=== PATIENT | female | born 1995 | race Hispanic/Latino ===

== ENCOUNTER 2021-05-23 18:18 | Day surgery (SDC) | payer SELFPAY ==
[2021-05-23 18:45] VITALS: BMI 28.9
[2021-05-23] MEDS ORDERED: Acetaminophen 500 MG TAB PO SCH (18:58)
[2021-05-23] MEDS ORDERED: hydrALAZINE 20 MG/ML VIAL SLOW IVP PRN (18:58)
[2021-05-23] MEDS ORDERED: Lactated Ringer's 1,000 ML IV SCH (19:00)
[2021-05-23 21:14] LABS: Bilirubin Neg (Negative); Blood, Urine 25 (Negative); Clarity Clear (Clear); Glucose, Urine (Dipstick) Normal (Negative); Ketone, Urine Negative (Negative); Leukocyte 25 (Negative); Nitrite Negative (Negative); Protein, Urine (Dipstick) Negative (Neg-Trace); Urobilinogen Normal mg/dL (Less than 2)
[2021-05-23 21:16] LABS: Urine Culture Reflex No No
[2021-05-23 21:27] LABS: Bacteria/HPF None Seen HPF (None Seen); RBC/HPF 0-3 HPF (0-3); Squamous Epithelial 0-3 HPF (0-3); WBC/HPF 0-3 HPF (0-3)
[2021-05-23] MEDS ORDERED: metroNIDAZOLE 500 MG TAB PO SCH (22:00)
[2021-05-24] MEDS ORDERED: metroNIDAZOLE 500 MG TAB PO SCH (09:00)
== END 2021-05-24 00:30 | disposition home or self-care (01) ==
LOC: CSHLD/OP 18:18
PROVIDERS: ATTEND Obstetrics & Gynecology
DX: O47.03 False labor before 37 completed weeks of gestation, third trimester (principal); O23.593 Infection of other part of genital tract in pregnancy, third trimester; B96.89 Other specified bacterial agents as the cause of diseases classified elsewhere; O98.813 Other maternal infectious and parasitic diseases complicating pregnancy, third trimester; B37.49 Other urogenital candidiasis; Z3A.34 34 weeks gestation of pregnancy
CPT/HCPCS: 51701; 81001; 87086; 87480; 87510; 87660; 96360; 96361; 99284

== ENCOUNTER 2021-06-16 21:37 | Day surgery (SDC) | payer SELFPAY ==
[2021-06-16 22:07] VITALS: BMI 30.2
[2021-06-17] MEDS ORDERED: hydrALAZINE 20 MG/ML VIAL SLOW IVP PRN (00:12)
== END 2021-06-17 00:40 | disposition home or self-care (01) ==
LOC: CSHLD/OP 21:37
PROVIDERS: ATTEND Family Medicine
DX: O47.1 False labor at or after 37 completed weeks of gestation (principal); Z3A.37 37 weeks gestation of pregnancy
CPT/HCPCS: 99283

== ENCOUNTER 2021-06-21 09:39 | Inpatient (IN) | payer MEDICAID, SELFPAY ==
[2021-06-21 10:21] VITALS: BMI 31.6
[2021-06-21] MEDS: Lactated Ringer's 1,000 ML IV SCH ×2 (10:30→20:26)
[2021-06-21] MEDS ORDERED: HYDROcodone/Acetaminophen 5/325 mg Tablet PO PRN ×2 (10:31→19:53)
[2021-06-21] MEDS ORDERED: Ibuprofen 800 MG TAB PO PRN (10:31)
[2021-06-21] MEDS ORDERED: Diphenoxylate HCl/Atropine Tablet PO PRN (10:31)
[2021-06-21] MEDS ORDERED: Misoprostol 200 MCG TAB PR PRN (10:31)
[2021-06-21] MEDS ORDERED: Lidocaine 1% (PF) 30 ML VIAL SC PRN (10:31)
[2021-06-21] MEDS ORDERED: Acetaminophen 500 MG TAB PO PRN (10:31)
[2021-06-21] MEDS ORDERED: Carboprost 250 MCG/ML AMP IM PRN (10:31)
[2021-06-21] MEDS ORDERED: hydrALAZINE 20 MG/ML VIAL SLOW IVP PRN ×2 (10:31→19:53)
[2021-06-21] MEDS ORDERED: Methylergonovine 0.2 MG/ML VIAL IM PRN (10:31)
[2021-06-21] MEDS ORDERED: Ondansetron PF 4 MG/2 ML Vial IVP PRN ×2 (10:31→19:53)
[2021-06-21] MEDS ORDERED: Promethazine HCl 25 MG/ML VIAL IM PRN (10:31)
[2021-06-21] MEDS ORDERED: NS w/ Oxytocin 30 units 500 ML IV SCH ×3 (10:45→19:53)
[2021-06-21 11:03] LABS: Hemoglobin 11.4 g/dL (12.0-15.5); Mean Corpuscular HGB CONC 33.2 g/dL (32.0-36.0); Mean Corpuscular Hemoglobin 28.2 pg (27.0-33.0); Mean Corpuscular Volume 84.9 fl (81.6-98.3); Mean Platelet Volume 10.5 fl (7.4-10.4); Platelet Count 300 10x3/uL (150-450); RBC Distribution Width 13.5 % (11.5-14.5); Red Blood Cell (RBC) Count 4.04 10x6/uL (3.90-5.03); White Blood Cell (WBC) Count 8.6 10x3/uL (3.5-10.5)
[2021-06-21 11:34] LABS: Hep B Surf Ag Non-Reactive S/CO (NonReactive); Syphilis Antibody Nonreactive (Nonreactive); Syphilis Antibody Index 0.02 S/CO (<1.00 Non-Reactive)
[2021-06-21 11:54] LABS: HBSAg Index 0.15 S/CO (0-0.99)
[2021-06-21 12:44] LABS: SARS-CoV-2 NAA Rapid Test Not Detected (NotDetected)
[2021-06-21] MEDS: Butorphanol Tartrate 1 MG/ML VIAL SLOW IVP PRN ×2 (12:46→13:55)
[2021-06-21] MEDS ORDERED: Lanolin Ointment 7 GM TUBE TOP PRN (19:53)
[2021-06-21] MEDS ORDERED: Milk Of Magnesia 30 ML UDCUP PO PRN (19:53)
[2021-06-21] MEDS ORDERED: Benzocaine-Menthol 82.5 ML CAN TOP PRN (19:53)
[2021-06-21] MEDS ORDERED: Boostrix 0.5 ML (Tdap) VIAL IM ONE (19:53)
[2021-06-21] MEDS ORDERED: diphenhydrAMINE 25 MG CAP PO PRN (19:53)
[2021-06-21] MEDS ORDERED: Bisacodyl 10 MG SUPP PR PRN (19:53)
[2021-06-21] MEDS: Docusate 100 MG CAP PO SCH (21:13)
[2021-06-21] MEDS: Ibuprofen 800 MG TAB PO SCH (23:49)
[2021-06-22] MEDS: Ibuprofen 800 MG TAB PO SCH ×3 (02:27→19:48)
[2021-06-22] MEDS: Ferrous Sulfate 325 MG TAB PO SCH ×2 (08:02→17:49)
[2021-06-22] MEDS: Docusate 100 MG CAP PO SCH (08:50)
[2021-06-22] MEDS ORDERED: Prenatal Vitamin 1 TAB PO SCH (09:00)
[2021-06-22 17:36] VITALS: BP 107/59; TEMP 98.8
== END 2021-06-22 20:00 | disposition home or self-care (01) | DRG 807 ==
LOC: CSHLD 09:39 → CSHPP 20:17
PROVIDERS: ADMIT Family Medicine; ATTEND Family Medicine
PROC: 10E0XZZ Delivery of Products of Conception, External Approach (ICD-10-PCS; principal; 2021-06-21)
PROC: 10907ZC Drainage of Amniotic Fluid, Therapeutic from Products of Conception, Via Natural or Artificial Opening (ICD-10-PCS; 2021-06-21)
DX: O69.81X0 Labor and delivery complicated by cord around neck, without compression, not applicable or unspecified (principal); Z37.0 Single live birth; Z3A.38 38 weeks gestation of pregnancy; Z20.822 Contact with and (suspected) exposure to COVID-19
CPT/HCPCS: 85027; 86780; 86850; 86900; 86901; 87340; J0595; J2590; J7120; U0002

== ENCOUNTER 2021-12-02 12:00 | Emergency (ER) | payer SELFPAY ==
[2021-12-02 12:40] LABS: BHCG - Serum POSITIVE (NEGATIVE); Pregs Control Background? CLEAR/WHITE (CLR/WHITE); Pregs Control Bar Appear? YES (CONTROL BAR)
[2021-12-02 12:42] LABS: #Monocytes 0.7 10x3/uL (0.0-1.1); #Neutrophils 9.3 10x3/uL (1.5-8.4); %Basophils 0.2 % (0.0-2.0); %Eosinophils 0.1 % (0.0-6.0); %Lymphocytes 17.4 % (18.0-47.0); %Monocytes 5.3 % (0.0-10.0); %Neutrophils 76.7 % (40.0-75.0); Hemoglobin 14.4 g/dL (12.0-15.5); Mean Corpuscular Hemoglobin 29.9 pg (27.0-33.0); Mean Corpuscular Volume 85.5 fl (81.6-98.3); Mean Platelet Volume 9.7 fl (7.4-10.4); Platelet Count 379 10x3/uL (150-450); RBC Distribution Width 12.6 % (11.5-14.5); Red Blood Cell (RBC) Count 4.82 10x6/uL (3.90-5.03); White Blood Cell (WBC) Count 12.2 10x3/uL (3.5-10.5)
[2021-12-02 12:50] LABS: ALT (SGPT) 13 U/L (8-55); AST (SGOT) 14 U/L (5-34); Albumin 4.6 g/dL (3.5-5.0); Alkaline Phosphatase 69 U/L (40-110); Anion Gap 15 mmol/L (10-20); BUN (Urea Nitrogen) 9 mg/dL (7.0-18.7); Bilirubin, Total 0.7 mg/dL (0.2-1.2); Calc. Creatinine Clearance 0 mL/min (70-130); Calcium 9.5 mg/dL (7.8-10.44); Carbon Dioxide 21 mmol/L (22-29); Chloride 105 mmol/L (98-107); Estimated GFR 128; Globulin 3.6 g/dL (2.4-3.5); Glucose 88 mg/dL (70-105); Lipase 22 U/L (8-78); Potassium 3.6 mmol/L (3.5-5.1); Protein, Total 8.2 g/dL (6.0-8.3); Sodium 137 mmol/L (136-145)
[2021-12-02] MEDS ORDERED: Ondansetron PF 4 MG/2 ML Vial ONE ×2 (12:52→15:07)
[2021-12-02 14:34] LABS: Bilirubin Neg (Negative); Blood, Urine 10 (Negative); Clarity Cloudy (Clear); Glucose, Urine (Dipstick) Normal (Negative); Ketone, Urine 5 mg/dL (Negative); Leukocyte 500 (Negative); Nitrite Negative (Negative); Protein, Urine (Dipstick) 30 mg/dl (Neg-Trace); Specific Gravity, Urine 1.015 (1.002-1.036); Urobilinogen Normal mg/dL (Less than 2); pH, Urine 6.5 (5.0-9.0)
[2021-12-02 14:46] LABS: Bacteria/HPF 4+ HPF (None Seen); RBC/HPF 0-3 HPF (0-3)
[2021-12-02 14:47] LABS: Mucous/LPF 3+ LPF (<2+)
== END 2021-12-02 15:21 | disposition home or self-care (01) ==
LOC: CSHERS 12:00
DX: O23.41 Unspecified infection of urinary tract in pregnancy, first trimester (principal); O26.891 Other specified pregnancy related conditions, first trimester; R10.30 Lower abdominal pain, unspecified; O21.9 Vomiting of pregnancy, unspecified; Z3A.01 Less than 8 weeks gestation of pregnancy
CPT/HCPCS: 76856; 80053; 81003; 81015; 83690; 84702; 84703; 85025; 87086; 96361; 96374; 96376; J2405

== ENCOUNTER 2021-12-05 19:51 | Emergency (ER) | payer SELFPAY ==
[2021-12-05] MEDS ORDERED: Promethazine HCl 25 MG/ML VIAL ONE ×2 (20:41→23:31)
[2021-12-05 20:43] LABS: #Monocytes 0.8 10x3/uL (0.0-1.1); #Neutrophils 10.4 10x3/uL (1.5-8.4); %Basophils 0.2 % (0.0-2.0); %Eosinophils 0.1 % (0.0-6.0); %Lymphocytes 14.8 % (18.0-47.0); %Monocytes 6.2 % (0.0-10.0); %Neutrophils 78.2 % (40.0-75.0); Hemoglobin 14.5 g/dL (12.0-15.5); Mean Corpuscular HGB CONC 34.9 g/dL (32.0-36.0); Mean Corpuscular Hemoglobin 29.9 pg (27.0-33.0); Mean Corpuscular Volume 85.6 fl (81.6-98.3); Mean Platelet Volume 9.9 fl (7.4-10.4); Platelet Count 353 10x3/uL (150-450); RBC Distribution Width 12.4 % (11.5-14.5); Red Blood Cell (RBC) Count 4.85 10x6/uL (3.90-5.03); White Blood Cell (WBC) Count 13.3 10x3/uL (3.5-10.5)
[2021-12-05 20:45] LABS: Bilirubin Neg (Negative); Blood, Urine 10 (Negative); Clarity Clear (Clear); Glucose, Urine (Dipstick) Normal (Negative); Ketone, Urine 50 mg/dL (Negative); Leukocyte 25 (Negative); Nitrite Negative (Negative); Protein, Urine (Dipstick) 30 mg/dl (Neg-Trace); Specific Gravity, Urine 1.015 (1.002-1.036); pH, Urine 6.5 (5.0-9.0)
[2021-12-05 20:51] LABS: ALT (SGPT) 18 U/L (8-55); AST (SGOT) 15 U/L (5-34); Albumin 4.5 g/dL (3.5-5.0); Alkaline Phosphatase 63 U/L (40-110); Anion Gap 15 mmol/L (10-20); BUN (Urea Nitrogen) 8 mg/dL (7.0-18.7); Bilirubin, Total 0.6 mg/dL (0.2-1.2); Calc. Creatinine Clearance 0 mL/min (70-130); Calcium 9.5 mg/dL (7.8-10.44); Carbon Dioxide 21 mmol/L (22-29); Chloride 103 mmol/L (98-107); Estimated GFR 128; Globulin 3.4 g/dL (2.4-3.5); Glucose 81 mg/dL (70-105); Lipase 27 U/L (8-78); Potassium 3.3 mmol/L (3.5-5.1); Protein, Total 7.9 g/dL (6.0-8.3); Sodium 136 mmol/L (136-145)
[2021-12-05 21:14] LABS: Bacteria/HPF 2+ HPF (None Seen); RBC/HPF 0-3 HPF (0-3); WBC/HPF 0-3 HPF (0-3)
[2021-12-05 21:15] LABS: Mucous/LPF 3+ LPF (<2+)
== END 2021-12-06 01:40 | disposition home or self-care (01) ==
LOC: CSHERS 19:51
DX: R11.2 Nausea with vomiting, unspecified (principal); E86.0 Dehydration
CPT/HCPCS: 36416; 80053; 81003; 81015; 82010; 83605; 83690; 84702; 85025; 96361; 96365; 96366; J2550

== ENCOUNTER 2022-04-12 13:39 | Outpatient (CLI) | payer OTHER | END 2022-04-12 13:40 | disposition home or self-care (01) | LOC: CSHULT 13:39 | PROVIDERS: ATTEND Family Medicine | DX: Z34.82 Encounter for supervision of other normal pregnancy, second trimester (principal) | CPT/HCPCS: 76805 ==

== ENCOUNTER 2022-05-31 14:44 | Day surgery (SDC) | payer OTHER ==
[2022-05-31 15:38] VITALS: BMI 26.6
[2022-05-31] MEDS ORDERED: hydrALAZINE 20 MG/ML VIAL SLOW IVP PRN (16:24)
== END 2022-05-31 17:20 | disposition home or self-care (01) ==
LOC: CSHLD/OP 14:44
PROVIDERS: ATTEND Family Medicine
DX: O26.893 Other specified pregnancy related conditions, third trimester (principal); R42 Dizziness and giddiness; Z3A.32 32 weeks gestation of pregnancy
CPT/HCPCS: 99282

== ENCOUNTER 2022-06-15 17:43 | Day surgery (SDC) | payer OTHER ==
[2022-06-15 18:13] VITALS: BMI 26.6
[2022-06-15] MEDS ORDERED: hydrALAZINE 20 MG/ML VIAL SLOW IVP PRN (18:32)
[2022-06-15 19:33] LABS: Bilirubin Neg (Negative); Blood, Urine 10 (Negative); Clarity Slightly Cloudy (Clear); Glucose, Urine (Dipstick) Normal (Negative); Ketone, Urine 5 mg/dL (Negative); Leukocyte 500 (Negative); Nitrite Negative (Negative); Protein, Urine (Dipstick) 15 mg/dl (Neg-Trace); Specific Gravity, Urine 1.015 (1.005-1.030); Urobilinogen Normal mg/dL (Less than 2); pH, Urine 6.5 (5.0-9.0)
[2022-06-15 19:46] LABS: CAUTI Indications for Culture Pregnancy; RBC/HPF 0-3 HPF (0-3)
[2022-06-15 19:47] LABS: Bacteria/HPF 4+ HPF (None Seen); Urine Culture Reflex Yes Yes
== END 2022-06-15 21:15 | disposition home or self-care (01) ==
LOC: CSHLD/OP 17:43
PROVIDERS: ATTEND Family Medicine
DX: O47.03 False labor before 37 completed weeks of gestation, third trimester (principal); O23.43 Unspecified infection of urinary tract in pregnancy, third trimester; N39.0 Urinary tract infection, site not specified; O99.283 Endocrine, nutritional and metabolic diseases complicating pregnancy, third trimester; E86.0 Dehydration; Z3A.34 34 weeks gestation of pregnancy
CPT/HCPCS: 81001; 87077; 87086; 87186; 99283

== ENCOUNTER 2022-07-08 22:59 | Inpatient (IN) | payer MEDICAID, OTHER, SELFPAY ==
[2022-07-08 23:18] VITALS: BMI 27.3
[2022-07-09] MEDS ORDERED: hydrALAZINE 20 MG/ML VIAL SLOW IVP PRN ×3 (00:46→12:52)
[2022-07-09] MEDS ORDERED: Carboprost 250 MCG/ML AMP IM PRN (01:53)
[2022-07-09] MEDS ORDERED: Acetaminophen 500 MG TAB PO PRN (01:53)
[2022-07-09] MEDS ORDERED: Butorphanol Tartrate 1 MG/ML VIAL SLOW IVP PRN (01:53)
[2022-07-09] MEDS ORDERED: Promethazine HCl 25 MG/ML VIAL IM PRN ×2 (01:53→12:52)
[2022-07-09] MEDS ORDERED: Misoprostol 200 MCG TAB PR PRN (01:53)
[2022-07-09] MEDS ORDERED: Methylergonovine 0.2 MG/ML VIAL IM PRN (01:53)
[2022-07-09] MEDS ORDERED: Ibuprofen 800 MG TAB PO PRN (01:53)
[2022-07-09] MEDS ORDERED: Diphenoxylate HCl/Atropine Tablet PO PRN (01:53)
[2022-07-09] MEDS ORDERED: Lidocaine 1% (PF) 30 ML VIAL SC PRN (01:53)
[2022-07-09] MEDS ORDERED: Ondansetron PF 4 MG/2 ML Vial IVP PRN ×2 (01:53→12:52)
[2022-07-09] MEDS ORDERED: NS w/ Oxytocin 30 units 500 ML IV SCH ×2 (02:00)
[2022-07-09] MEDS: Lactated Ringer's 1,000 ML IV SCH ×2 (02:03→08:45)
[2022-07-09 02:38] LABS: Hemoglobin 10.9 g/dL (12.0-15.5); Mean Corpuscular HGB CONC 33.1 g/dL (32.0-36.0); Mean Corpuscular Hemoglobin 26.7 pg (27.0-33.0); Mean Corpuscular Volume 80.6 fl (81.6-98.3); Mean Platelet Volume 10.2 fl (7.4-10.4); Platelet Count 369 10x3/uL (150-450); Red Blood Cell (RBC) Count 4.08 10x6/uL (3.90-5.03); White Blood Cell (WBC) Count 8.5 10x3/uL (3.5-10.5)
[2022-07-09 03:06] LABS: SARS-CoV-2 NAA Rapid Test Not Detected (NotDetected)
[2022-07-09 03:10] LABS: Syphilis Antibody Nonreactive (Nonreactive); Syphilis Antibody Index 0.03 S/CO (<1.00 Non-Reactive)
[2022-07-09 03:11] LABS: HBSAg Index 0.16 S/CO (0-0.99); Hep B Surf Ag Non-Reactive S/CO (NonReactive)
[2022-07-09] MEDS ORDERED: HYDROcodone/Acetaminophen 5/325 mg Tablet PO PRN ×2 (12:26→12:52)
[2022-07-09] MEDS ORDERED: Lanolin Ointment 7 GM TUBE TOP PRN (12:52)
[2022-07-09] MEDS ORDERED: Milk Of Magnesia 30 ML UDCUP PO PRN (12:52)
[2022-07-09] MEDS ORDERED: Bisacodyl 10 MG SUPP PR PRN (12:52)
[2022-07-09] MEDS ORDERED: diphenhydrAMINE 25 MG CAP PO PRN (12:52)
[2022-07-09] MEDS ORDERED: Boostrix 0.5 ML (Tdap) VIAL (>/=7 yrs of age) IM ONE (12:52)
[2022-07-09] MEDS: Ibuprofen 800 MG TAB PO SCH ×3 (14:00→23:53)
[2022-07-09] MEDS: Ferrous Sulfate 325 MG TAB PO SCH (17:07)
[2022-07-09] MEDS: Docusate 100 MG CAP PO SCH (23:53)
[2022-07-10] MEDS: HYDROcodone/Acetaminophen 5/325 mg Tablet PO PRN ×2 (04:00→11:43)
[2022-07-10] MEDS: Ibuprofen 800 MG TAB PO SCH ×2 (05:44→13:50)
[2022-07-10] MEDS: Ferrous Sulfate 325 MG TAB PO SCH (07:45)
[2022-07-10] MEDS: Docusate 100 MG CAP PO SCH (08:45)
[2022-07-10] MEDS ORDERED: Prenatal Vitamin 1 TAB PO SCH (09:00)
[2022-07-10 12:48] VITALS: BP 113/59; TEMP 98.3
== END 2022-07-10 17:50 | disposition home or self-care (01) | DRG 807 ==
LOC: CSHLD/OP 22:59 → CSHLD 07-09 02:10 → CSHPED 07-09 13:05
PROVIDERS: ADMIT Family Medicine; ATTEND Family Medicine
PROC: 10E0XZZ Delivery of Products of Conception, External Approach (ICD-10-PCS; principal; 2022-07-09)
PROC: 10907ZC Drainage of Amniotic Fluid, Therapeutic from Products of Conception, Via Natural or Artificial Opening (ICD-10-PCS; 2022-07-09)
DX: O69.81X0 Labor and delivery complicated by cord around neck, without compression, not applicable or unspecified (principal); Z37.0 Single live birth; Z20.822 Contact with and (suspected) exposure to COVID-19; Z3A.38 38 weeks gestation of pregnancy
CPT/HCPCS: 36415; 85027; 86780; 86850; 86900; 86901; 87340; 99285; J2590; J7120; U0002

== ENCOUNTER 2022-12-03 16:14 | Emergency (ER) | payer MEDICAID, OTHER, SELFPAY ==
[2022-12-03] MEDS ORDERED: Lidocaine 2% 6 ML (Jelly) SYR TOP SCH (18:00)
[2022-12-03 18:10] LABS: Bilirubin Neg (Negative); Blood, Urine 150 (Negative); Glucose, Urine (Dipstick) Normal (Negative); Ketone, Urine Negative (Negative); Leukocyte 100 (Negative); Nitrite Positive (Negative); Protein, Urine (Dipstick) Negative (Neg-Trace); Urobilinogen Normal mg/dL (Less than 2)
[2022-12-03 18:11] LABS: Clarity Slightly Cloudy (Clear)
[2022-12-03 18:12] LABS: Pregnancy Test - Urine (BHCG) Negative (Negative); Pregu Control Background? CLEAR/WHITE (CLR/WHITE); Pregu Control Bar Appear? YES (CONTROL BAR)
[2022-12-03 18:19] LABS: Bacteria/HPF 3+ HPF (None Seen); CAUTI Indications for Culture Dysuria,urgency,freq; Squamous Epithelial 0-3 HPF (0-3)
[2022-12-03 18:22] LABS: Urine Culture Reflex Yes Yes
== END 2022-12-03 18:42 | disposition home or self-care (01) ==
LOC: CSHERS 16:14
DX: N39.0 Urinary tract infection, site not specified (principal); N89.8 Other specified noninflammatory disorders of vagina
CPT/HCPCS: 81001; 81025; 87077; 87086; 87186; 99283

== ENCOUNTER 2024-05-21 09:18 | Emergency (ER) | payer SELFPAY ==
[2024-05-21] MEDS ORDERED: Lidocaine 1% w/Epinephrine 1:200K 30 ML VIAL ONE (10:47)
== END 2024-05-21 13:39 | disposition home or self-care (01) ==
LOC: CSHERS 09:18
DX: K61.0 Anal abscess (principal)
CPT/HCPCS: 99282

== ENCOUNTER 2025-02-26 12:34 | Emergency (ER) | payer BC, SELFPAY ==
[2025-02-26] MEDS ORDERED: Ondansetron PF 4 MG/2 ML Vial ONE (14:26)
== END 2025-02-26 15:10 | disposition home or self-care (01) ==
LOC: CSHERS 12:34
DX: S43.014A Anterior dislocation of right humerus, initial encounter (principal); W01.0XXA Fall on same level from slipping, tripping and stumbling without subsequent striking against object, initial encounter
CPT/HCPCS: 23650; 96374; 96375; 96376; J2405; J3010

== ENCOUNTER 2025-03-07 17:36 | Emergency (ER) | payer SELFPAY ==
[2025-03-07] MEDS ORDERED: Ibuprofen 200 MG TAB ONE (18:45)
== END 2025-03-07 20:31 | disposition home or self-care (01) ==
LOC: CSHERS 17:36
DX: L03.317 Cellulitis of buttock (principal)
CPT/HCPCS: 76882